=== PATIENT | female | born 1975 | race African-American/Black ===

== ENCOUNTER 2017-05-22 00:13 | Emergency (ER) | payer OTHER ==
[2017-05-22 00:24] VITALS: TEMP 97.8; BMI 30.9
[2017-05-22] MEDS ORDERED: FAMOTIDINE 20 MG/50 ML IVPB 20 MG/50 ML MG IVPB ONE (01:55)
[2017-05-22] MEDS ORDERED: MAG HYDROX/AL HYDROX/SIMETH 30 ML UNIT-DOSE CUP PO ONE (01:55)
[2017-05-22] MEDS ORDERED: PANTOPRAZOLE 20 MG TABLET (FP) PO ONE (02:30)
[2017-05-22] MEDS ORDERED: RANITIDINE HCL 150 MG TABLET (FP) ONE (02:30)
[2017-05-22] MEDS ORDERED: MAG HYDROX/AL HYDROX/SIMETH 30 ML UNIT-DOSE CUP ONE (02:31)
[2017-05-22 02:37] LABS: BASOPHIL 0.2 % (0-2.0); EOSINOPHIL 2.4 % (0-4.5); MCHC 33.8 g/dl (32.0-36.0); MEAN CELL VOLUME 91.7 fl (80-96); NEUTROPHILS 78.1 % (42.8-82.8); PLATELET COUNT 204 K/MM3 (134-434); RDW 12.3 % (11.6-15.6); WHITE BLOOD COUNT 9.6 K/mm3 (4.0-10.0)
[2017-05-22 03:01] LABS: CPK 127 IU/L (26-192); TROPONIN I < 0.02 ng/ml (0.00-0.05)
--- NOTE | 2017-05-22 03:06 | PDOC ---
History of Present Illness - General Chief Complaint: Shortness of Breath Stated Complaint: ALLERGIC RX Time Seen by Provider: 05/22/17 01:47 - History of Present Illness Initial Comments: 05/22/17 03:00 41 year old female with who is approximately 5 days post- who presents to the ED complaining of chest tightness and bilateral lower extremity swelling that began last night. Patient reports she was experiencing lower back pain for which she was prescribed Oxycodone and a Solu-Medrol dose pack yesterday. Last night she took the first dose of her Solu-medrol and subsequently developed her chest tightness and noticed bilateral lower extremity edema. The chest tightness was a burning sensation that resolved spontaneously yesterday. Tonight she took her second Solu-medrol dose and subsequently had recurrence of the chest tightness. Since coming to the ER, she reports that her symptoms have significantly improved. The patient currently denies any chest pain, palpitations, or shortness of breath. She denies any nausea, vomiting, or diaphoresis. Past History - Past Medical History Allergies/Adverse Reactions: Allergies Allergy/AdvReac Type Severity Reaction Status Date / Time codeine Allergy Rash Verified 05/22/17 00:24 Home Medications: Ambulatory Orders Vit/Iron Fumarate/FA [ Tablet] 1 tab PO DAILY 04/20/17 COPD: No Other medical history: denies - Suicide/Smoking/Psychosocial Hx Smoking History: Never smoked Review of Systems - Review of Systems Comments:: 05/22/17 03:01 "GENERAL/CONSTITUTIONAL: No fever or chills. No weakness. HEAD, EYES, EARS, NOSE AND THROAT: No change in vision. No ear pain or discharge. No sore throat. CARDIOVASCULAR: +Mild b/l lower extremity swelling. No chest pain or shortness of breath. RESPIRATORY: +Chest tightness (resolved). No cough, wheezing, or hemoptysis. GASTROINTESTINAL: No nausea, vomiting, diarrhea or constipation. GENITOURINARY: No dysuria, frequency, or change in urination. MUSCULOSKELETAL: No joint or muscle swelling or pain. No neck or back pain. SKIN: No rash NEUROLOGIC: No headache, vertigo, loss of consciousness, or change in strength/ sensation. ENDOCRINE: No increased thirst. No abnormal weight change. HEMATOLOGIC/LYMPHATIC: No anemia, easy bleeding, or history of blood clots. ALLERGIC/IMMUNOLOGIC: No hives or skin allergy. " *Physical Exam - Vital Signs Last Vital Signs Temp Pulse Resp BP Pulse Ox 97.8 F 64 18 152/82 99 05/22/17 00:19 05/22/17 00:19 05/22/17 00:19 05/22/17 00:19 05/22/17 00:19 - Physical Exam Comments: 05/22/17 03:01 "GENERAL: Awake, alert, and fully oriented, in no acute distress HEAD: No signs of trauma EYES: PERRLA, EOMI, sclera anicteric, conjunctiva clear ENT: Auricles normal inspection, hearing grossly normal, nares patent, oropharynx clear without exudates. Moist mucosa NECK: Nontender, no stepoffs, Normal ROM, supple, no lymphadenopathy, JVD, or masses LUNGS: Breath sounds equal, clear to auscultation bilaterally. No wheezes, and no crackles HEART: Regular rate and rhythm, normal S1 and S2, no murmurs, rubs or gallops ABDOMEN: Soft, nontender, normoactive bowel sounds. No guarding, no rebound. No masses EXTREMITIES: +Minimal bilateral symmetric lower extremity edema. Normal range of motion. No clubbing or cyanosis. No cords, erythema, or tenderness NEUROLOGICAL: Cranial nerves II through XII intact. 5/5 strength and sensation in all extremities, Normal speech, normal gait SKIN: Warm, Dry, normal turgor, no rashes or lesions noted." Heart Score/ECG Review - History History: Slightly suspicious - Electrocardiogram EKG: Normal - Age Age: </= 45 - Risk Factors Based on the list above the patient has:: No risk factors known - Troponin Troponin: </= normal limit - Score Heart Score - Total: 0 - ECG Impressions Comment:: 05/22/17 03:02 NSR, no BINU/STDs, no TWIs, intervals wnl, axis wnl ED Treatment Course - LABORATORY CBC & Chemistry Diagram: 05/22/17 02:27 05/22/17 02:37 - ADDITIONAL ORDERS Additional order review: Laboratory Results 05/22/17 05/22/17 05/22/17 02:37 02:37 02:27 Sodium 141 Potassium 4.3 Chloride 108 H Carbon Dioxide 24 Anion Gap 9 BUN 12 Creatinine 0.6 Creat Clearance w eGFR > 60 Random Glucose 111 H Calcium 9.1 Total Bilirubin 0.2 AST 31 ALT 83 H Alkaline Phosphatase 113 Creatine Kinase 127 Troponin I < 0.02 B-Natriuretic Peptide 518.92 H Total Protein 6.2 L Albumin 2.5 L Lipase 117 05/22/17 02:27 RBC 3.75 MCV 91.7 MCHC 33.8 RDW 12.3 MPV 7.0 L Neutrophils % 78.1 D Lymphocytes % 13.0 D Monocytes % 6.3 Eosinophils % 2.4 Basophils % 0.2 - RADIOLOGY Radiology Studies Ordered: Category Date Time Status CHEST PA & LAT [RAD] Stat Radiology 05/22/17 01:54 Taken - Medications Given in the ED: ED Medications Discontinued Medications Generic Name Dose Route Start Last Admin Trade Name Freq PRN Reason Stop Dose Admin Al Hydroxide/Mg Hydroxide 30 ml 05/22/17 01:55 05/22/17 02:34 Mylanta Oral Suspension - PO 05/22/17 01:56 30 ml ONCE ONE Administration Famotidine/Sodium Chloride 20 mg in 50 mls @ 100 mls/hr 05/22/17 01:55 02:38 Pepcid 20 Mg Premixed Ivpb - IVPB 05/22/17 02:24 Not Given ONCE ONE Pantoprazole Sodium 20 mg 05/22/17 02:30 05/22/17 02:34 Protonix - PO 05/22/17 02:31 20 mg ONCE ONE Administration Medical Decision Making - Medical Decision Making 05/22/17 03:02 41 F with atypical chest pain. Likely acid reflux/gastritis as pain occurs in the context of taking steroids. Pt with no ischemic changes on EKG and no exertional component to her pain. related cardiomyopathy unlikely as pt with no SOB, no hypoxia, normal EKG. PE unlikely as pt not tachypneic, not tachycardic, not hypoxic, with no asymmetric leg swelling. - Labs, trop, BNP - CXR - GI cocktail 05/22/17 05:10 CBC,CMP WBC 9.6 K/mm3 (4.0-10.0) D 05/22/17 02:27 RBC 3.75 M/mm3 (3.60-5.2) 05/22/17 02:27 Hgb 11.6 GM/dL (10.7-15.3) 05/22/17 02:27 Hct 34.4 % (32.4-45.2) 05/22/17 02:27 MCV 91.7 fl (80-96) 05/22/17 02:27 MCH 31.0 pg (25.7-33.7) 05/22/17 02:27 MCHC 33.8 g/dl (32.0-36.0) 05/22/17 02:27 RDW 12.3 % (11.6-15.6) 05/22/17 02:27 Plt Count 204 K/MM3 (134-434) 05/22/17 02:27 MPV 7.0 fl (7.5-11.1) L 05/22/17 02:27 Neutrophils % 78.1 % (42.8-82.8) D 05/22/17 02:27 Lymphocytes % 13.0 % (8-40) D 05/22/17 02:27 Monocytes % 6.3 % (3.8-10.2) 05/22/17 02:27 Eosinophils % 2.4 % (0-4.5) 05/22/17 02:27 Basophils % 0.2 % (0-2.0) 05/22/17 02:27 Sodium 141 mmol/L (136-145) 05/22/17 02:37 Potassium 4.3 mmol/L (3.5-5.1) 05/22/17 02:37 Chloride 108 mmol/L (98-107) H 05/22/17 02:37 Carbon Dioxide 24 mmol/L (21-32) 05/22/17 02:37 Anion Gap 9 (8-16) 05/22/17 02:37 BUN 12 mg/dL (7-18) 05/22/17 02:37 Creatinine 0.6 mg/dL (0.55-1.02) 05/22/17 02:37 Creat Clearance w eGFR > 60 (>60) 05/22/17 02:37 Random Glucose 111 mg/dL (74-106) H 05/22/17 02:37 Calcium 9.1 mg/dL (8.5-10.1) 05/22/17 02:37 Total Bilirubin 0.2 mg/dL (0.2-1.0) 05/22/17 02:37 AST 31 U/L (15-37) 05/22/17 02:37 ALT 83 U/L (12-78) H 05/22/17 02:37 Alkaline Phosphatase 113 U/L (45-117) 05/22/17 02:37 Creatine Kinase 127 IU/L (26-192) 05/22/17 02:27 Troponin I < 0.02 ng/ml (0.00-0.05) 05/22/17 02:27 B-Natriuretic Peptide 518.92 pg/ml (5-125) H 05/22/17 02:27 Total Protein 6.2 g/dl (6.4-8.2) L 05/22/17 02:37 Albumin 2.5 g/dl (3.4-5.0) L 05/22/17 02:37 Lipase 117 U/L (73-393) 05/22/17 02:37 Trop negative. BNP slightly elevated. Pt with mild pitting edema in ankles, but no other evidence of volume overload. Pt reassessed - still mildly symptomatic despite GI cocktail but states that the pain has improved significantly. Given abnormal BNP, I would like to repeat pt's troponin as well as send D dimer to r/o PE. However, pt at this time refusing additional blood draws and testing, stating that she feels much better. Pt plans to see her PMD tomorrow. The patient is clinically sober, free from distracting injury, appears to have intact insight and judgment and reason and in my opinion has the capacity to make decisions. The patient presented with chest pain. I have explained that I am concerned that this may represent a blood clot or heart attack; they have verbalized an understanding of my concerns. I have discussed the need for Ddimer and repeat troponin. I have told the patient that if they leave and have chest pain or shortness of breath, they could get much worse, could become critically ill, and could possibly become disabled or . The patient is not willing to await additional lab tests. *DC/Admit/Observation/Transfer Diagnosis at time of Disposition: Chest pain - Discharge Dispostion Disposition: HOME - Referrals Referrals: Juan Carlos Adhikari MD [Staff Physician] - - Patient Instructions Printed Discharge Instructions: DI for Atypical Chest Pain Additional Instructions: You must follow up with a lead ramp service man for further evaluation of your chest pain. Call the number provided to make an appointment within 1 week, or ask your primary doctor for a referral. If you experience worsening chest pain, shortness of breath, or any other concerning symptoms, return to the ER immediately. Otherwise, see your primary doctor in 2-3 days. - Post Discharge Activity - Attestations Physician Attestion: 05/22/17 05:22 I, Dr. Carlos Rogers MD, attest that this document has been prepared under my direction and personally reviewed by me in its entirety. I further attest, that it accurately reflects all work, treatment, procedures and medical decision -making performed by me.
[2017-05-22 03:46] LABS: ALBUMIN 2.5 g/dl (3.4-5.0); ALK PHOS 113 U/L (45-117); ANION GAP 9 (8-16); BILIRUBIN,TOTAL 0.2 mg/dL (0.2-1.0); CALCIUM 9.1 mg/dL (8.5-10.1); CO2 24 mmol/L (21-32); CREATININE 0.6 mg/dL (0.55-1.02); GLUCOSE,RANDOM 111 mg/dL (74-106); SGOT/AST 31 U/L (15-37); SGPT/ALT 83 U/L (12-78); TOT PROT 6.2 g/dl (6.4-8.2)
[2017-05-22 05:30] VITALS: BP 138/79; PULSE 65
--- NOTE | 2017-05-23 14:22 | EKG ---
Test Reason : Blood Pressure : / mmHG Vent. Rate : 052 BPM Atrial Rate : 052 BPM P-R Int : 162 ms QRS Dur : 076 ms QT Int : 396 ms P-R-T Axes : 025 048 046 degrees QTc Int : 368 ms SINUS BRADYCARDIA WITH SINUS ARRHYTHMIA OTHERWISE NORMAL ECG NO PREVIOUS ECGS AVAILABLE Confirmed by JACY HO MD ([id number]) on 05/23/2017 2:22:33 PM Referred By: Confirmed By:JACY HO MD
== END 2017-05-22 05:30 | disposition home or self-care (01) ==
LOC: JER 00:13
DX: O90.89 Other complications of the puerperium, not elsewhere classified (principal)
CPT/HCPCS: 36415; 71020-TC; 80053; 82550; 83690; 83880; 84484; 85025; 93005; 93010; 99282-25